=== PATIENT | female | born 1965 | race Caucasian/White ===

== ENCOUNTER → 2017-02-09 | Outpatient (CLI) | payer BC | LOC: RT 11:45 | DX: R55 Syncope and collapse (principal); R42 Dizziness and giddiness ==

== ENCOUNTER → 2022-03-10 | Outpatient (CLI) | payer BC | LOC: NM 07:37 | DX: R07.9 Chest pain, unspecified (principal); R55 Syncope and collapse; I10 Essential (primary) hypertension | CPT/HCPCS: 78452; 93017; A9502; J2785 ==